=== PATIENT | male | born 1980 | race Caucasian/White ===

== ENCOUNTER 2018-10-24 20:46 | Emergency (ER) | payer OTHER ==
[~2018-10-24] VITALS: Ht 180.3 cm; Wt 97.5 kg
[2018-10-24] MEDS ORDERED: AZITHROMYCIN250 MG (22:26)
[2018-10-24] MEDS ORDERED: DOLOGESIC-DF 51 EACH (22:27)
== END 2018-10-25 03:35 | disposition home or self-care (01) ==
LOC: ER 20:46
DX: L03.116 Cellulitis of left lower limb (principal)